=== PATIENT | female | born 1940 | race Hispanic/Latino ===

== ENCOUNTER 2021-09-02 19:11 | Inpatient (IN) | payer MEDICARE ==
[2021-09-02 19:59] LABS: #Basophils 0.1 10x3/uL (0.0-0.2); #Eosinphils 0.3 10x3/uL (0.0-0.5); #Monocytes 0.7 10x3/uL (0.0-1.1); #Neutrophils 4.2 10x3/uL (1.5-8.4); %Eosinophils 4.4 % (0.0-6.0); %Lymphocytes 25.3 % (18.0-47.0); %Monocytes 9.4 % (0.0-10.0); %Neutrophils 59.8 % (40.0-75.0); Hemoglobin 13.2 g/dL (12.0-15.5); Mean Corpuscular HGB CONC 34.6 g/dL (32.0-36.0); Mean Corpuscular Hemoglobin 31.4 pg (27.0-33.0); Mean Corpuscular Volume 90.7 fl (81.6-98.3); Mean Platelet Volume 11.6 fl (7.4-10.4); Platelet Count 205 10x3/uL (150-450); RBC Distribution Width 13.8 % (11.5-14.5); Red Blood Cell (RBC) Count 4.21 10x6/uL (3.90-5.03)
[2021-09-02] MEDS ORDERED: Diltiazem HCl 125 MG, Admixture Fee 1 EACH in Sodium Chloride 0.9% 100 ML IVPB SCH (20:00)
[2021-09-02 20:10] LABS: ALT (SGPT) 22 U/L (8-55); AST (SGOT) 20 U/L (5-34); Albumin 4.2 g/dL (3.4-4.8); Alkaline Phosphatase 163 U/L (40-110); Anion Gap 15 mmol/L (10-20); BUN (Urea Nitrogen) 15 mg/dL (9.8-20.1); Bilirubin, Total 0.4 mg/dL (0.2-1.2); Calc. Creatinine Clearance 0 mL/min (70-130); Calcium 8.7 mg/dL (7.8-10.44); Carbon Dioxide 18 mmol/L (23-31); Chloride 113 mmol/L (98-107); Globulin 2.7 g/dL (2.4-3.5); Glucose 120 mg/dL (83-110); Potassium 3.4 mmol/L (3.5-5.1); Protein, Total 6.9 g/dL (5.8-8.1); Sodium 143 mmol/L (136-145)
[2021-09-02] MEDS ORDERED: Diltiazem 125 MG/25 ML ONE (20:16)
[2021-09-02 21:04] LABS: SARS-CoV-2 NAA Rapid Test Not Detected (NotDetected)
[2021-09-02 22:58] VITALS: BMI 28.2
[2021-09-02] MEDS ORDERED: Ondansetron PF 4 MG/2 ML Vial IVP PRN (23:26)
[2021-09-02] MEDS ORDERED: Diltiazem 125 MG in Sodium Chloride 0.9% 100 ML IVPB SCH (23:30)
[2021-09-03] MEDS ORDERED: Potassium Chloride 20 MEQ in Premix Bag 1 BAG IVPB SCH
[2021-09-03 00:26] LABS: Troponin I 0.032 ng/mL (< 0.028)
[2021-09-03] MEDS: Sodium Chloride 0.9% 1,000 ML IV SCH ×2 (00:32→12:31)
[2021-09-03] MEDS ORDERED: Potassium Chloride 20 MEQ TAB PO SCH (01:15)
[2021-09-03] MEDS: hydrALAZINE 20 MG/ML VIAL SLOW IVP PRN ×2 (02:54→21:02)
[2021-09-03 03:37] LABS: #Basophils 0.1 10x3/uL (0.0-0.2); #Eosinphils 0.2 10x3/uL (0.0-0.5); #Monocytes 0.8 10x3/uL (0.0-1.1); #Neutrophils 5.3 10x3/uL (1.5-8.4); %Basophils 0.7 % (0.0-2.0); %Monocytes 8.6 % (0.0-10.0); %Neutrophils 61.4 % (40.0-75.0); Hemoglobin 13.4 g/dL (12.0-15.5); Mean Corpuscular HGB CONC 33.8 g/dL (32.0-36.0); Mean Corpuscular Hemoglobin 31.2 pg (27.0-33.0); Mean Corpuscular Volume 92.3 fl (81.6-98.3); Mean Platelet Volume 11.9 fl (7.4-10.4); Platelet Count 220 10x3/uL (150-450); RBC Distribution Width 13.7 % (11.5-14.5); Red Blood Cell (RBC) Count 4.29 10x6/uL (3.90-5.03); White Blood Cell (WBC) Count 8.7 10x3/uL (3.5-10.5)
[2021-09-03 03:59] LABS: Troponin I 0.016 ng/mL (< 0.028)
[2021-09-03 04:00] LABS: Anion Gap 14 mmol/L (10-20); BUN (Urea Nitrogen) 14 mg/dL (9.8-20.1); Calc. Creatinine Clearance 51 mL/min (70-130); Calcium 9.1 mg/dL (7.8-10.44); Carbon Dioxide 20 mmol/L (23-31); Cardiac Risk 2.6 (Less than 4.5); Chloride 111 mmol/L (98-107); Cholesterol 153 mg/dl (< 200 Desired); Glucose 121 mg/dL (83-110); HDL Cholesterol 58 mg/dL (>60 Neg Risk); LDL Cholesterol, Calculated 80 mg/dL; Magnesium 1.7 mg/dL (1.6-2.6); Potassium 3.4 mmol/L (3.5-5.1); Sodium 142 mmol/L (136-145); Triglycerides 74 mg/dL (Less than 150)
[2021-09-03] MEDS ORDERED: Magnesium 2 GM/50 ML 2 GM in Premix Bag 1 BAG IVPB SCH (08:00)
[2021-09-03] MEDS: Amlodipine 5 MG TAB PO SCH (08:57)
[2021-09-03] MEDS ORDERED: Pantoprazole 40 MG VIAL IVP SCH (09:00)
[2021-09-03] MEDS: Famotidine 20 MG TAB PO SCH (09:00)
[2021-09-03] MEDS: Losartan Potassium 50 MG TAB PO SCH (09:01)
[2021-09-03] MEDS: hydrALAZINE 25 MG TAB PO SCH ×3 (09:01→19:50)
[2021-09-03] MEDS: Pantoprazole 40 MG VIAL IVP SCH (09:02)
[2021-09-03] MEDS: Flecainide 50 MG TAB PO SCH ×2 (09:29→19:50)
[2021-09-03] MEDS: Simvastatin 10 MG TAB PO SCH (19:50)
[2021-09-04] MEDS: Sodium Chloride 0.9% 1,000 ML IV SCH ×2 (02:55→16:54)
[2021-09-04] MEDS ORDERED: Diltiazem 125 MG in Sodium Chloride 0.9% 100 ML IVPB SCH (03:45)
[2021-09-04 03:49] LABS: #Basophils 0.1 10x3/uL (0.0-0.2); #Eosinphils 0.6 10x3/uL (0.0-0.5); #Monocytes 0.8 10x3/uL (0.0-1.1); %Eosinophils 6.6 % (0.0-6.0); %Monocytes 8.9 % (0.0-10.0); %Neutrophils 58.3 % (40.0-75.0); Hemoglobin 12.9 g/dL (12.0-15.5); Mean Corpuscular Hemoglobin 31.5 pg (27.0-33.0); Mean Corpuscular Volume 92.7 fl (81.6-98.3); Mean Platelet Volume 11.5 fl (7.4-10.4); Platelet Count 209 10x3/uL (150-450); RBC Distribution Width 14.2 % (11.5-14.5); Red Blood Cell (RBC) Count 4.09 10x6/uL (3.90-5.03); White Blood Cell (WBC) Count 8.6 10x3/uL (3.5-10.5)
[2021-09-04 03:55] LABS: Magnesium 2.1 mg/dL (1.6-2.6); Phosphorus 2.5 mg/dL (2.3-4.7)
[2021-09-04 04:06] LABS: PTT 27.4 sec (22.0-33.0)
[2021-09-04 05:31] LABS: Anion Gap 14 mmol/L (10-20); BUN (Urea Nitrogen) 16 mg/dL (9.8-20.1); Calc. Creatinine Clearance 43 mL/min (70-130); Calcium 8.6 mg/dL (7.8-10.44); Carbon Dioxide 17 mmol/L (23-31); Chloride 113 mmol/L (98-107); Glucose 104 mg/dL (83-110); Potassium 3.8 mmol/L (3.5-5.1); Sodium 140 mmol/L (136-145)
[2021-09-04] MEDS: Famotidine 20 MG TAB PO SCH (08:31)
[2021-09-04] MEDS: Losartan Potassium 50 MG TAB PO SCH (08:31)
[2021-09-04] MEDS: Pantoprazole 40 MG VIAL IVP SCH (08:32)
[2021-09-04] MEDS: Amlodipine 5 MG TAB PO SCH (08:32)
[2021-09-04] MEDS: Flecainide 50 MG TAB PO SCH ×2 (08:32→20:38)
[2021-09-04] MEDS: hydrALAZINE 25 MG TAB PO SCH ×3 (08:32→20:40)
[2021-09-04] MEDS ORDERED: FLU VACC QS2021-22(65YR UP)/PF 240 MCG/0.7 ML SYRINGE IM ONE (09:00)
[2021-09-04] MEDS ORDERED: Potassium Chloride 40 MEQ in Premix Bag 1 BAG IVPB SCH (09:15)
[2021-09-04] MEDS: hydrALAZINE 20 MG/ML VIAL SLOW IVP PRN ×2 (09:57→22:22)
[2021-09-04] MEDS: Potassium Chloride 20 MEQ in Premix Bag 1 BAG IVPB SCH ×2 (10:26→16:46)
[2021-09-04] MEDS ORDERED: Lidocaine 1% (PF) 30 ML VIAL ONE ×2 (12:03→12:35)
[2021-09-04] MEDS ORDERED: CEFAZOLIN 1 GM VIAL ONE ×2 (12:04→12:05)
[2021-09-04] MEDS ORDERED: Fentanyl 100 MCG/2 ML VIAL ONE (12:05)
[2021-09-04] MEDS ORDERED: Midazolam HCl 2 mg/2 ml Vial ONE (12:06)
[2021-09-04] MEDS ORDERED: Acetaminophen/Codeine 30-300mg Tablet PO PRN (14:39)
[2021-09-04] MEDS: Cephalexin 250 MG CAP PO SCH ×2 (16:47→20:40)
[2021-09-04] MEDS ORDERED: Potassium Chloride 20 MEQ in Premix Bag 1 BAG IVPB SCH (17:00)
[2021-09-04] MEDS: Simvastatin 10 MG TAB PO SCH (20:39)
[2021-09-04] MEDS: Apixaban 2.5 MG TAB PO SCH (20:40)
[2021-09-04] MEDS ORDERED: Losartan 25 MG TAB PO SCH (21:00)
[2021-09-05 05:17] LABS: Anion Gap 12 mmol/L (10-20); BUN (Urea Nitrogen) 16 mg/dL (9.8-20.1); Calc. Creatinine Clearance 42 mL/min (70-130); Calcium 8.6 mg/dL (7.8-10.44); Carbon Dioxide 19 mmol/L (23-31); Chloride 113 mmol/L (98-107); Glucose 101 mg/dL (83-110); Potassium 3.9 mmol/L (3.5-5.1); Sodium 140 mmol/L (136-145)
[2021-09-05 05:22] LABS: Magnesium 1.8 mg/dL (1.6-2.6); Phosphorus 2.7 mg/dL (2.3-4.7)
[2021-09-05 05:27] LABS: #Basophils 0.1 10x3/uL (0.0-0.2); #Eosinphils 0.6 10x3/uL (0.0-0.5); #Monocytes 0.9 10x3/uL (0.0-1.1); #Neutrophils 4.4 10x3/uL (1.5-8.4); %Eosinophils 7.5 % (0.0-6.0); %Lymphocytes 23.8 % (18.0-47.0); %Neutrophils 56.4 % (40.0-75.0); Hemoglobin 12.2 g/dL (12.0-15.5); Mean Corpuscular HGB CONC 33.2 g/dL (32.0-36.0); Mean Corpuscular Hemoglobin 31.3 pg (27.0-33.0); Mean Corpuscular Volume 94.4 fl (81.6-98.3); Mean Platelet Volume 12.1 fl (7.4-10.4); Platelet Count 199 10x3/uL (150-450); RBC Distribution Width 14.2 % (11.5-14.5); White Blood Cell (WBC) Count 7.7 10x3/uL (3.5-10.5)
[2021-09-05] MEDS: Sodium Chloride 0.9% 1,000 ML IV SCH (07:33)
[2021-09-05] MEDS: Flecainide 50 MG TAB PO SCH (09:18)
[2021-09-05] MEDS: Apixaban 2.5 MG TAB PO SCH (09:18)
[2021-09-05] MEDS: Famotidine 20 MG TAB PO SCH (09:18)
[2021-09-05] MEDS: Amlodipine 5 MG TAB PO SCH (09:18)
[2021-09-05] MEDS: Cephalexin 250 MG CAP PO SCH ×2 (09:19→17:48)
[2021-09-05] MEDS: Pantoprazole 40 MG VIAL IVP SCH (09:19)
[2021-09-05] MEDS: hydrALAZINE 25 MG TAB PO SCH ×2 (09:19→17:48)
[2021-09-05 16:17] VITALS: BP 173/70; TEMP 98.2
== END 2021-09-05 18:30 | disposition home or self-care (01) | DRG 243 ==
LOC: CSHERS 19:11 → CSHIMCU 22:38 → CSHTELE 09-04 11:48
PROVIDERS: ADMIT Family Medicine; ATTEND Family Medicine
PROC: 0JH606Z Insertion of Pacemaker, Dual Chamber into Chest Subcutaneous Tissue and Fascia, Open Approach (ICD-10-PCS; principal; 2021-09-04)
PROC: 02H63JZ Insertion of Pacemaker Lead into Right Atrium, Percutaneous Approach (ICD-10-PCS; 2021-09-04)
PROC: 02HK3JZ Insertion of Pacemaker Lead into Right Ventricle, Percutaneous Approach (ICD-10-PCS; 2021-09-04)
DX: I49.5 Sick sinus syndrome (principal); I50.32 Chronic diastolic (congestive) heart failure; I47.1 Supraventricular tachycardia; I13.0 Hypertensive heart and chronic kidney disease with heart failure and stage 1 through stage 4 chronic kidney disease, or unspecified chronic kidney disease; Z20.822 Contact with and (suspected) exposure to COVID-19; E87.6 Hypokalemia; N18.31 Chronic kidney disease, stage 3a; E78.2 Mixed hyperlipidemia; I45.5 Other specified heart block; I25.118 Atherosclerotic heart disease of native coronary artery with other forms of angina pectoris; I48.0 Paroxysmal atrial fibrillation; I73.9 Peripheral vascular disease, unspecified; Z90.49 Acquired absence of other specified parts of digestive tract; Z87.891 Personal history of nicotine dependence; Z98.890 Other specified postprocedural states
CPT/HCPCS: 33208; 36415; 71045; 80048; 80053; 80061; 83735; 83880; 84100; 84443; 84484; 85025; 85610; 85730; 86850; 86900; 86901; 93005; 93010; 94760; 97139; 99152; 99153; C1785; C1898; C9113; J0360; J0690; J2001; J2250; J3010; J3475; J3480; J3490; J7050; U0002

== ENCOUNTER 2021-10-02 18:55 | Emergency (ER) | payer MEDICARE ==
[2021-10-02 20:07] LABS: #Basophils 0.1 10x3/uL (0.0-0.2); #Eosinphils 0.2 10x3/uL (0.0-0.5); #Monocytes 0.7 10x3/uL (0.0-1.1); #Neutrophils 4.1 10x3/uL (1.5-8.4); %Basophils 0.9 % (0.0-2.0); %Eosinophils 2.9 % (0.0-6.0); %Lymphocytes 27.3 % (18.0-47.0); %Monocytes 10.1 % (0.0-10.0); %Neutrophils 58.5 % (40.0-75.0); Hemoglobin 13.5 g/dL (12.0-15.5); Mean Corpuscular HGB CONC 34.2 g/dL (32.0-36.0); Mean Corpuscular Hemoglobin 31.2 pg (27.0-33.0); Mean Corpuscular Volume 91.2 fl (81.6-98.3); Mean Platelet Volume 11.2 fl (7.4-10.4); Platelet Count 190 10x3/uL (150-450); RBC Distribution Width 12.6 % (11.5-14.5); Red Blood Cell (RBC) Count 4.33 10x6/uL (3.90-5.03)
[2021-10-02 20:32] LABS: ALT (SGPT) 14 U/L (8-55); AST (SGOT) 19 U/L (5-34); Albumin 4.4 g/dL (3.4-4.8); Alkaline Phosphatase 179 U/L (40-110); Anion Gap 17 mmol/L (10-20); BUN (Urea Nitrogen) 19 mg/dL (9.8-20.1); Bilirubin, Total 0.4 mg/dL (0.2-1.2); Calc. Creatinine Clearance 0 mL/min (70-130); Carbon Dioxide 19 mmol/L (23-31); Chloride 109 mmol/L (98-107); Globulin 3.1 g/dL (2.4-3.5); Glucose 147 mg/dL (83-110); Potassium 3.7 mmol/L (3.5-5.1); Protein, Total 7.5 g/dL (5.8-8.1); Sodium 141 mmol/L (136-145)
[2021-10-02] MEDS ORDERED: Labetalol HCl 100 MG/20 ML VIAL ONE (20:32)
== END 2021-10-03 | disposition home or self-care (01) ==
LOC: CSHERS 18:55
DX: I10 Essential (primary) hypertension (principal)
CPT/HCPCS: 36415; 70450; 71045; 80053; 84484; 85025; 93005; 96374; 96376

== ENCOUNTER 2022-07-04 22:17 | Emergency (ER) | payer MEDICARE ==
[2022-07-04 23:43] LABS: #Eosinphils 0.3 10x3/uL (0.0-0.5); #Monocytes 0.7 10x3/uL (0.0-1.1); #Neutrophils 3.4 10x3/uL (1.5-8.4); %Basophils 0.6 % (0.0-2.0); %Eosinophils 4.4 % (0.0-6.0); %Lymphocytes 31.4 % (18.0-47.0); %Monocytes 10.7 % (0.0-10.0); %Neutrophils 52.7 % (40.0-75.0); Hemoglobin 14.7 g/dL (12.0-15.5); Mean Corpuscular HGB CONC 36.2 g/dL (32.0-36.0); Mean Corpuscular Hemoglobin 30.9 pg (27.0-33.0); Mean Corpuscular Volume 85.3 fl (81.6-98.3); Platelet Count 213 10x3/uL (150-450); RBC Distribution Width 13.2 % (11.5-14.5); Red Blood Cell (RBC) Count 4.76 10x6/uL (3.90-5.03); White Blood Cell (WBC) Count 6.4 10x3/uL (3.5-10.5)
[2022-07-05] MEDS ORDERED: Meclizine HCl 25 MG TAB ONE (00:35)
[2022-07-05 00:43] LABS: Anion Gap 17 mmol/L (10-20); BUN (Urea Nitrogen) 16 mg/dL (9.8-20.1); Calc. Creatinine Clearance 0 mL/min (70-130); Carbon Dioxide 21 mmol/L (23-31); Chloride 107 mmol/L (98-107); Sodium 142 mmol/L (136-145)
[2022-07-05 00:44] LABS: ALT (SGPT) 10 U/L (8-55); AST (SGOT) 18 U/L (5-34); Albumin 4.2 g/dL (3.4-4.8); Alkaline Phosphatase 142 U/L (40-110); Bilirubin, Total 0.6 mg/dL (0.2-1.2); Estimated GFR 59; Globulin 3.1 g/dL (2.4-3.5); Glucose 131 mg/dL (83-110); Protein, Total 7.3 g/dL (5.8-8.1)
[2022-07-05 00:52] LABS: Potassium 2.9 mmol/L (3.5-5.1)
[2022-07-05] MEDS ORDERED: Acetaminophen 500 MG TAB ONE (02:18)
[2022-07-05] MEDS ORDERED: Potassium Chloride 20 MEQ TAB ONE (02:18)
== END 2022-07-05 02:11 | disposition home or self-care (01) ==
LOC: CSHERS 22:17
DX: R42 Dizziness and giddiness (principal); E87.6 Hypokalemia; I10 Essential (primary) hypertension; Z95.0 Presence of cardiac pacemaker
CPT/HCPCS: 36415; 70450; 71045; 80053; 84484; 85025; 93005